=== PATIENT | female | born 1960 | race Caucasian/White ===

== ENCOUNTER 2022-11-24 07:53 | Day surgery (SDC) | payer BC ==
[2022-11-19 11:49] LABS: BASOPHILS % (AUTO) 0.6 % (0-1); EOSINOPHILS # (AUTO) 0.2 X10'3 (0-0.9); LYMPHOCYTES % (AUTO) 27.3 % (21-51); MEAN CORPUSCULAR HEMOGLOBIN 31.5 PG (27.0-31.0); MEAN CORPUSCULAR HGB CONC 33.8 g/dL (33.0-36.5); MEAN CORPUSCULAR VOLUME 92.9 FL (78-98); MONOCYTES # (AUTO) 0.6 X10'3 (0-0.9); MONOCYTES % (AUTO) 7.9 % (2-12); NEUTROPHILS # (AUTO) 4.4 X10'3 (1.8-7.7); NEUTROPHILS % (AUTO) 61.2 % (42-75); PRE OP HEMATOCRIT 40.1 % (35.0-45.0); PRE OP HEMOGLOBIN 13.6 g/dL (12.0-16.0); PRE OP PLATELET COUNT 273 X10'3 (140-440); RED BLOOD COUNT 4.32 X10'6 (4.20-5.60); RED CELL DISTRIBUTION WIDTH 14.3 % (11.5-14.5)
[2022-11-19 12:06] LABS: ALBUMIN 4.2 G/DL (3.4-5.0); ALBUMIN/GLOBULIN RATIO 1.2 (1.1-1.5); ALKALINE PHOSPHATASE 77 IU/L (46-116); BLOOD UREA NITROGEN 17 MG/DL (7-18); BUN/CREATININE RATIO 25.8 (6.6-38.0); CALCIUM 9.4 MG/DL (8.5-10.1); CHLORIDE 106 MMOL/L (99-107); CREATININE 0.66 MG/DL (0.40-0.90); PRE OP ALT 24 U/L (30-65); PRE OP ANION GAP 7 (8-16); PRE OP AST 21 U/L (10-37); PRE OP BILIRUB, TOTAL 0.5 MG/DL (0.0-1.0); PRE OP GLUCOSE 106 MG/DL (70-104); PRE OP POTASSIUM 3.9 MMOL/L (3.4-5.1); PRE OP SODIUM 140 MMOL/L (135-145); TOTAL CARBON DIOXIDE 26.6 MMOL/L (24-32); TOTAL PROTEIN 7.6 G/DL (6.4-8.2); eGFR > 90 ML/MIN
[~2022-11-24] VITALS: Ht 168.9 cm; Wt 73.5 kg
[~2022-11-24 07:53] MED LIST: LACT1CAP65 PO; LISI10TA27 PO; METH479P PO; OMEP20CA15 PO; [UNRECOGNIZED DRUG - CODE] TOP; ceFAZolin inj. 2,000 MG in dextrose 5%-water 100 ML IV ONE; famotidine 20mg tablet PO ONE; ringers solution, lacted 1,000 ML IV SCH
[2022-11-24] MEDS ORDERED: labetalol 20mg/4ml (5mg/ml) syringe IV PRN (08:35)
[2022-11-24] MEDS ORDERED: meperidine/PF 25mg/ml syringe IV PRN ×3 (08:35)
[2022-11-24] MEDS ORDERED: proCHLORperazine 10 MG/2 ml inj IV PRN (08:35)
[2022-11-24] MEDS ORDERED: ringers solution, lacted 1,000 ML IV SCH (08:35)
[2022-11-24] MEDS ORDERED: morphine 4 MG/ML inj SYRINge IV PRN (08:35)
[2022-11-24] MEDS ORDERED: hydrALAZINE 20mg/ml inj. IV PRN (08:35)
[2022-11-24] MEDS ORDERED: acetaminophen 1,000mg/100ml IV 100 ML IV PRN (08:35)
[2022-11-24] MEDS ORDERED: ondansetron/PF 4mg/2ml inj IV PRN (08:35)
[2022-11-24] MEDS ORDERED: morphine 2 MG/ML inj. syringe IV PRN (08:35)
[2022-11-24 09:49] VITALS: BP 142/93
[2022-11-24] MEDS ORDERED: LIDOcaine 0.5% (5mg/ml) 50ml vial ONE (09:55)
[2022-11-24] MEDS ORDERED: fentaNYL/PF 50MCG/1 ML 2ML syringe ONE (10:15)
[2022-11-24] MEDS ORDERED: midazolam 1 mg/ML 2ml injection ONE (10:17)
[2022-11-24] MEDS ORDERED: propofol inj 20 ML IV ONE ×2 (10:26)
[2022-11-24] MEDS ORDERED: BUPIVAcaine/PF 2.5 mg/ml (0.25%) 30ml vial ONE (10:36)
[2022-11-24] MEDS ORDERED: BUPIVAcaine/PF 2.5 mg/ml (0.25%) 30ml vial IJ ONE (10:39)
[2022-11-24] MEDS ORDERED: ondansetron/PF 4mg/2ml inj ONE (10:40)
[2022-11-24 11:09] VITALS: BP 118/88
--- NOTE | 2022-11-24 11:09 | NUR ---
Received from OR via [facility] TO ROOM 6, accompanied by Anesthesiologist DR GIBSON and report given by Anesthesiolgist. PT PRESENTS WITH 20G RIGHT HAND, LEFT HAND SPLINT CDI, VSS. Addendum: 11/24/22 at 1120 by Amira Duval RN, RN Amended: Links added.
[2022-11-24 11:20] VITALS: BP 117/77
[2022-11-24 11:30] VITALS: BP 121/83
[2022-11-24 11:40] VITALS: BP 119/82
[2022-11-24 11:49] VITALS: BP 119/82
--- NOTE | 2022-11-24 11:49 | NUR ---
PATIENT DISCHARGED FROM PACU IN STABLE CONDITION AFTER WRITTEN AND VERBAL DISCHARGE INSTUCTIONS GIVEN. PATIENT GAVE VERBAL UNDERSTANDING OF INSTRUCTIONS. PATIENT LEFT FACILITY VIA WHEELCHAIR WITH VOLUNTEER. Addendum: 11/24/22 at 1158 by Amira Duval RN, RN Amended: Links added.
== END 2022-11-24 11:49 | disposition home or self-care (01) ==
LOC: PAS 07:53
PROVIDERS: ATTEND Orthopaedic Surgery Hand Surgery
DX: M18.12 Unilateral primary osteoarthritis of first carpometacarpal joint, left hand (principal); I10 Essential (primary) hypertension; I48.91 Unspecified atrial fibrillation; K21.9 Gastro-esophageal reflux disease without esophagitis; Z88.5 Allergy status to narcotic agent; Z79.899 Other long term (current) drug therapy; Z87.891 Personal history of nicotine dependence; Z90.710 Acquired absence of both cervix and uterus; Z98.890 Other specified postprocedural states; Z72.89 Other problems related to lifestyle; Z85.828 Personal history of other malignant neoplasm of skin
CPT/HCPCS: 25310; 25447; 36415; 80053; 82948; 85025; 93005; J0690; J2250; J2405; J2704; J3010; J3490; J7030; J7060; J7120; Z7506; Z7508; Z7512; A4215; A4618; A7000